=== PATIENT | male | born 1960 | race Caucasian/White ===

== ENCOUNTER 2020-04-27 11:24 | Outpatient (CLI) | payer MEDICAID, SELFPAY ==
--- NOTE | 2020-04-27 06:00 | DI.RAD_ITS ---
EXAM: XR PAIN CLINIC LUMBAR SP 2V CLINICAL HISTORY: Dx: Lumbar Spondylosis TECHNIQUE: 2D and realtime digital imaging was performed. CONTRAST MATERIAL: Refer to procedure report. COMPARISON: No exams were available for comparison FINDINGS: Fluoroscopy was provided for Dr. Rivera during the performance of a lumbar medial branch block. Please refer to the procedure report for complete details. Fluoro time: 46.4 seconds IMPRESSION:
[2020-04-27 11:33] VITALS: BP 137/80; PULSE 59; RESP 16; TEMP 37; O2SAT 98
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
[2020-04-27] MEDS: Bupivacaine 0.5% Pres-Free 10 ML VIAL IJ (12:13)
[2020-04-27] MEDS: Omnipaque 240 MG/ML 50 ML BTL IJ (12:13)
[2020-04-27 12:14] VITALS: BP 133/82; PULSE 55; RESP 21; O2SAT 99
== END 2020-04-27 11:44 ==
PROVIDERS: PCP Internal Medicine; Visit Provider Internal Medicine
DX: M47.815 Spondylosis without myelopathy or radiculopathy, thoracolumbar region (principal)
CPT/HCPCS: 64493; 64494; 72100; Q9967

== ENCOUNTER 2020-05-13 11:58 | Outpatient (CLI) | payer MEDICAID, SELFPAY ==
--- NOTE | 2020-05-13 06:00 | DI.RAD_ITS ---
EXAM: XR PAIN CLINIC LUMBAR SP 2V CLINICAL HISTORY: Dx: Lumbar Spondylosis TECHNIQUE: 2D and realtime digital imaging was performed. COMPARISON: No exams were available for comparison FINDINGS: C-arm fluoroscopy was utilized by Dr. Moctezuma during reported lumbar medial branch block. Hard copy mara ws needle placement on the right adjacent to the pedicles with of what appear to be L1 and L2. Fluoro time, 36.4 seconds IMPRESSION: RADIATION DOSE DELIVERED: Total DLP
[2020-05-13 12:05] VITALS: BP 132/74; PULSE 61; RESP 16; TEMP 36.4; O2SAT 95
[2020-05-13 12:29] VITALS: BP 149/85; PULSE 55; RESP 15; O2SAT 98
--- NOTE | 2020-05-13 12:38 | PDOC.PAIN ---
Pain Clinic Procedure Note Procedure Note Procedure Note: Lumbar/Sacral Medial Branch Blocks #2 Jhon Taylor has been referred to the [facility] for lumbar/sacral medial branch blocks. COMMENTS: He did great with his first set of LMBBs DX: Lumbosacral spondylosis without myelopathy Patient was interviewed and the medical record reviewed. There were no medical, pharmacologic, radiographic or other structural contraindications to attempting fluoroscopically guided local anesthetic lumbar/sacral medial branch blocks. Risks and expected side effects as well as potential benefit of the procedure were reviewed and voiced concerns addressed. The printed consent form was signed and witnessed. Standard time-out procedure was performed. Patient was placed in the prone position on the fluoroscopy table and automated blood pressure cuff and pulse oximeter applied. The skin entry points for approaching the anatomic target points of the segmental medial branches of bilateral T12-L1 were identified with anfluoroscopy and marked. Following thorough Chlorhexadine preparation of the skin and draping and 1% lidocaine infiltration of the skin entry points and subcutaneous tissues, a 22 gauge spinal needle was placed under fluoroscopic guidance down on to the target point for each respective segmental medial branch.Position was confirmed in A/P, oblique and lateral views with 0.25ml of omnipaque 240. As this point I injected 0.5cc of 2% Lidocaine at each segmental nerve. Vital signs were stable throughout the procedure and were as recorded in the docflowsheet by the nursing staff. Follow up plans and appointments were discussed and was instructed to keep careful note of how the usual pain was modified by these injections. Specifically was asked to keep a pain diary for the next 24 hours using a numeric pain scale of 0-10 and report these results at the follow-up visit. Post procedure instruction was given as documented in the nursing documentation and having met discharge criteria. Patient was discharged from the [facility]. Based on the medial branches blocked today, if the patient has adequate relief and we are able to proceed to radiofrequency ablation, the treatment should result in the denervation of the bilateral L1-L2 FACET JOINTS. We would expect to denervate a total of 2 facets during the radiofrequency ablation. COMMENTS: He will call back with his 1-4 hour pain scores. Ck Moctezuma DO, MPH Pain Management CC: Hilaria Reyna
[2020-05-13] MEDS: Lidocaine 2% Pres-Free 5 ML VIAL IJ (12:48)
[2020-05-13] MEDS: Omnipaque 240 MG/ML 50 ML BTL IJ (12:48)
== END 2020-05-13 12:18 ==
PROVIDERS: PCP Internal Medicine; Visit Provider Preventive Medicine Occupational Medicine
DX: M47.817 Spondylosis without myelopathy or radiculopathy, lumbosacral region (principal)
CPT/HCPCS: 64493; 72100; Q9967

== ENCOUNTER 2020-07-01 13:52 | Outpatient (CLI) | payer MEDICAID, SELFPAY ==
--- NOTE | 2020-07-01 06:00 | DI.RAD_ITS ---
EXAM: XR PAIN CLINIC LUMBAR SP 2V CLINICAL HISTORY: Dx: Lumbar Spondylosis TECHNIQUE: 2D and realtime digital imaging was performed. CONTRAST MATERIAL: Refer to procedure report. COMPARISON: No exams were available for comparison FINDINGS: Fluoroscopy was provided for Dr. Moctezuma during the performance of a lumbar radiofrequency ablation. P sumi refer to the procedure report for complete details. Fluoro time: 55.7 seconds IMPRESSION:
[2020-07-01 13:59] VITALS: BP 125/75; PULSE 57; RESP 16; TEMP 37; O2SAT 97
[2020-07-01] MEDS: Lactated Ringers 1,000 ML 80 ML IV (14:35)
[2020-07-01] MEDS: fentaNYL 100 MCG/2 ML VIAL IVP ×2 (14:41→14:46)
[2020-07-01] MEDS: Midazolam 2 MG/2 ML VIAL IVP (14:41)
[2020-07-01 15:03] VITALS: BP 128/74; PULSE 64; RESP 24
--- NOTE | 2020-07-01 15:07 | PDOC.PAIN_ITS ---
Pain Clinic Procedure Note Procedure Note Procedure Note: Bilateral Lumbar Radiofrequency with Coolief Machine PROCEDURE NOTE Date of Service: July 01, 2020 Patient: Jhon Taylor Provider: Ck Moctezuma DO, MPH Pre Operative Diagnosis: Thoracolumbar spondylosis without myelopathy Post Operative Diagnosis: Same PROCEDURE: Radiofrequency Ablation of medial branches - Bilateral T12 and L1 Jhon Taylor was brought into the fluoroscopy suite and positioned into the prone position on the fluoroscopy table and allowed to adjust to a position of comfort. A grounding pad was placed on the right thigh. The lumbar region was widely prepped with a chloraprep solution, allowed to air dry and draped in s tandard sterile surgical fashion. Local anesthesia was provided by 4 mL of 2% Lidocaine delivered with a 25g needle. A 17g 100mm radiofrequency introducer needle was placed to the planned anatomic targets guided with intermittent fluoroscopy with a perpendicular approach to terminally place at the junction of the superior articular process and the transverse process of the bilateral T12 and L1. The stylets were removed and radiofrequency probes with a 4mm active tip were then inserted. Needle tip position of the probes was verified in the AP, oblique, and lateral views. At each site, the medial branch nerve was stimulated at 2 Hz to a maximum 1-2 volts determined to finalize safe needle and electrode placement. The patient was awake and responsive during this portion of the procedure. Each target was anesthetized with 1-2 mL of 2% Lidocaine for anesthesia for lesioning and then each target was lesioned at 80 degrees Celsius for 2 minutes and 30 seconds. Tissue impedences were noted to be between 250 and 500 Ohms. I then injected 1/4 cc of Depomedrol (40 mg/cc) and 1 cc of 0.5% Bupivacaine to each segmental nerve area. Electrodes and needles were then removed and bandages placed over the needle placement sites, the patient then returned to the supine position on a stretcher and transported to the recovery room without hemodynamic, neurologic, or allergic reactions. Fluoroscopic images were printed for hard copy recording and digitally archived. Follow up plans and appointments were discussed with the Jhon . Post procedure instruction was given as documented in nursing documentation and having met discharge criteria, Jhon was discharged from the [facility]. COMMENTS: No complications. F/U with our office as needed. I personally performed this entire procedure. Ck Moctezuma DO, MPH Pain Management Attending Physician
[2020-07-01] MEDS: Bupivacaine 0.5% Pres-Free 10 ML VIAL IJ (15:18)
[2020-07-01] MEDS: methylPREDNISolone ACETATE 40 MG/ML VIAL IJ (15:18)
[2020-07-01] MEDS: Lidocaine 2% Pres-Free 5 ML VIAL IJ (15:18)
== END 2020-07-01 14:12 ==
PROVIDERS: PCP Internal Medicine; Visit Provider Preventive Medicine Occupational Medicine
DX: M47.815 Spondylosis without myelopathy or radiculopathy, thoracolumbar region (principal)
CPT/HCPCS: 64635; 72100; J1030; J2250; J3010